=== PATIENT | female | born 1930 | race Caucasian/White ===

== ENCOUNTER 2018-12-06 14:27 | Inpatient (IN) | payer MEDICARE ==
[~2018-12-06] VITALS: Ht 162.6 cm; Wt 59.4 kg
--- NOTE | 2018-12-06 14:49 | NUR ---
received patient awake alert via wheelchair,[facility] production line solderer dr. miguel larose paged for admission orders.
--- NOTE | 2018-12-06 15:00 | NUR ---
spoke with miguel he will see patient first on the floor.
--- NOTE | 2018-12-06 15:00 | NUR ---
MS rn notes received pt in room 102. blood pressure 171/64 pulse 55. pt with sling on left arm. left arm with bruises and swelling. c/o pain 10/10 in left arm. admitting process complete.
[2018-12-06] MEDS ORDERED: LEVO137T24 PO (15:05)
[2018-12-06] MEDS ORDERED: ASCO-317 PO (15:05)
[2018-12-06] MEDS ORDERED: ATOR20TA PO (15:05)
[2018-12-06] MEDS ORDERED: CHOL20004 PO (15:05)
[2018-12-06] MEDS ORDERED: B CO1TAB6 PO (15:05)
[2018-12-06] MEDS ORDERED: BUDE180A IH (15:05)
[2018-12-06] MEDS ORDERED: RIVA10TA PO (15:05)
[2018-12-06] MEDS ORDERED: MAGN400T6 PO (15:05)
[2018-12-06] MEDS ORDERED: MULT-1160 PO (15:05)
[2018-12-06] MEDS ORDERED: LOSA1TAB36 PO (15:05)
[2018-12-06 16:00] VITALS: BP 171/64
[2018-12-06] MEDS ORDERED: HYDROCODONE/APAP 5/325MG 1 EACH TABLET PO ONE (16:30)
--- NOTE | 2018-12-06 17:52 | NUR ---
still waiting for admission ayanna from [facility], pressurised container filler page regarding schedule procedure in am.
--- NOTE | 2018-12-06 17:53 | NUR ---
able to get orders from coury nieves and carried out.
[2018-12-06] MEDS ORDERED: ONDANSETRON HCL/PF 4 MG/2 ML VIAL IVP PRN (18:00)
[2018-12-06] MEDS ORDERED: MAGNESIUM HYDROXIDE 30 ML UDC PO PRN (18:00)
[2018-12-06] MEDS ORDERED: MORPHINE SULFATE INJ 2 MG/ML DISP.SYRIN IV PRN (18:00)
[2018-12-06] MEDS ORDERED: Z GUARD REMEDY 2 OZ OINT TP PRN (18:00)
[2018-12-06] MEDS ORDERED: MAG HYDROX/AL HYDROX/SIMETH 30 ML UDC PO PRN (18:00)
[2018-12-06] MEDS ORDERED: ACETAMINOPHEN 325 MG TABLET PO PRN (18:00)
[2018-12-06] MEDS: IV NS 0.9% 1,000 ML IV PRN (18:28)
--- NOTE | 2018-12-06 18:50 | NUR ---
ms rn notes pt stable in bed, grand daughter at bedside. iv fluids infusing via rfa at 75ml/hr. not in resp distress. bed in locked/lowest position. call light in reach. endorsed to pm nurse for del.
[2018-12-06 20:00] VITALS: BP_SYST 169; BP_DIAS 64; BP_DIAS 84
--- NOTE | 2018-12-06 20:00 | NUR ---
MS RN NOTE PT IN BED AWAKE. A/O X 4, NO SOB, NO DISTRESS OR DISCOMFORT NOTED. STATES "IF I DON'T MOVE THERE IS NO PAIN". REMINDED HER IF SHE FEELS PAIN ASK FOR PAIN MED. PT STATES "OK". LT ARM WITH SLING ON. LT ARM WITH SWELLING AND PURPLISH DISCOLORATION NOTED. IVF NS 75 ML/HR INFUSING WELL NO S/S OF INFILTRATION NOTED. ALSO REMINDED PT SHE WILL BE NOTHING BY MOUTH AFTER MIDNIGHT DUE TO SURGERY IN AM. SON ALSO AT BED SIDE. SIDE RAILS UP X 2 AND CALL LIGHT WITHIN REACH. CONTINUE TO MONITOR HER.
[2018-12-06] MEDS: BUDESONIDE RESPULE INH 0.5 MG/2 ML AMPUL.NEB IH SCH (22:51)
[2018-12-06 23:44] LABS: APPEARANCE,URINE Clear (CLEAR); BILIRUBIN,URINE Negative (NEGATIVE); BLOOD, URINE Trace-intact Ery/uL (NEGATIVE); COLOR,URINE Yellow (YELLOW); KETONES,URINE Negative (NEGATIVE); LEUKOCYTE ESTERASE ,URINE Negative (NEGATIVE); NITRITE, URINE Negative (NEGATIVE); PH,URINE 5.5 (5.0-8.0); PROTEIN,URINE Negative (NEGATIVE); UGLUCOSE Negative (NEGATIVE); UROBILINOGEN,URINE 0.2 EU/dL (0.2)
[2018-12-07] MEDS: HYDROCODONE/APAP 5/325MG 1 EACH TABLET PO PRN ×2 (00:17→19:46)
[2018-12-07 00:44] LABS: BACTERIA,URINE Few /HPF (None Seen); SQUAMOUS EPITHELIAL CELL,UR Few /HPF (None Seen); WBC,URINE 0-2 /HPF (0-3)
[2018-12-07 05:00] VITALS: BP 162/80
[2018-12-07 06:22] LABS: BASOPHILS % (AUTO) 0.5 % (0.0-2.0); EOSINOPHILS % (AUTO) 3.9 % (0.0-6.0); HEMATOCRIT 32 % (33-45); HEMOGLOBIN 10.7 g/dL (11.5-14.8); LYMPHOCYTES # (AUTO) 2.4 /CMM (0.8-4.8); MEAN CORPUSCULAR HGB CONC 34 g/dl (31.0-36.0); MEAN CORPUSCULAR VOLUME 91 fL (82-100); MONOCYTES # (AUTO) 0.6 /CMM (0.1-1.30); MONOCYTES % (AUTO) 10.4 % (2.0-12.0); NEUTROPHILS # (AUTO) 2.4 /CMM (1.8-8.9); NEUTROPHILS % (AUTO) 42.2 % (43.0-81.0); PLATELET COUNT (AUTO) 190 /CMM (150-450); RED BLOOD CELL COUNT(AUTO) 3.48 MIL/uL (4.0-5.2); WHITE BLOOD COUNT (AUTO) 5.7 K/uL (4.3-11.0)
[2018-12-07 06:53] LABS: ALBUMIN 2.7 g/dL (3.4-5.0); BILIRUBIN,TOTAL 0.7 mg/dL (0.2-1.0); CALCIUM, SERUM 8.8 mg/dL (8.5-10.1); CREATININE 0.8 mg/dL (0.6-1.3); MAGNESIUM 1.8 mg/dL (1.8-2.4); PHOSPHORUS 3.3 mg/dL (2.5-4.9); POTASSIUM 4.2 mmol/L (3.5-5.1); TOTAL PROTEIN, SERUM 6.4 g/dL (6.4-8.2)
--- NOTE | 2018-12-07 07:00 | NUR ---
RN MS NOTE RECEIVED REPORT AT BEDSIDE. PT A/OX4. NPO, PLANNED FOR LEFT HUMORAL SURGERY. RFA IV SITE WAS LEAKING, REMOVED AND PLACED A NEW IV RIGHT HAND #22 INSERTED, PATENT AND FLUSHED WELL. NO SIGN OF RESPIRATORY DISTRESS OR SOB AT THIS TIME. WILL CONT' TO MONITOR.
--- NOTE | 2018-12-07 07:20 | NUR ---
MS RN NOTE CALLED PATIENT'S SON AND LEFT VOICE MESSAGE THAT SURGERY WILL BE IN 1 HOUR.
[2018-12-07] MEDS: PANTOPRAZOLE 40 MG TABLET.DR PO SCH (07:30)
[2018-12-07] MEDS ORDERED: BUPIVACAINE 0.5 % PF 150 MG/30 ML VIAL ONE ×2 (07:38→08:21)
[2018-12-07] MEDS ORDERED: ANESTHESIA TRAY IN PYXIS 1 EA TRAY MC ONE (07:38)
[2018-12-07] MEDS ORDERED: BACITRACIN 50000 UNITS/VIAL ONE (07:39)
[2018-12-07 07:50] LABS: THYROID STIMULATING HORMONE 1.482 uIU/mL (0.358-3.74)
[2018-12-07 08:00] VITALS: BP 184/89
--- NOTE | 2018-12-07 08:15 | NUR ---
MS RN NOTE PATIENT'S SON AT BEDSIDE.
[2018-12-07] MEDS ORDERED: MIDAZOLAM HCL 2 MG/2ML VIAL ONE (08:18)
[2018-12-07] MEDS ORDERED: FENTANYL PF 250MCG/5ML AMPUL ONE ×2 (08:18→08:19)
[2018-12-07] MEDS ORDERED: MEPERIDINE HCL/PF 100 MG/ML DISP.SYRIN ONE (08:19)
[2018-12-07] MEDS ORDERED: ROCURONIUM BROMIDE 50 MG/5 ML ONE (08:20)
[2018-12-07] MEDS ORDERED: FAMOTIDINE/PF INJ 20 MG/2 ML VIAL IV ONE (08:20)
[2018-12-07] MEDS: BUDESONIDE RESPULE INH 0.5 MG/2 ML AMPUL.NEB IH SCH ×2 (09:00→21:54)
[2018-12-07] MEDS ORDERED: CLINDAMYCIN 900 MG/6 ML VIAL ONE (10:48)
[2018-12-07] MEDS ORDERED: hydrALAZINE HCL IV 20 MG VIAL ONE (12:21)
--- NOTE | 2018-12-07 13:00 | NUR ---
RN MS NOTE PT VACK FOR SURGERY. A/OX3. VS STABLE. SAFETY MEASURES IN PLACE.
[2018-12-07] MEDS: IV NS 0.9% 1,000 ML IV PRN (13:48)
[2018-12-07 16:00] VITALS: BP 144/67
--- NOTE | 2018-12-07 19:59 | NUR ---
MS RN NOTE PT RESTING COMFORTABLY. NO SIGN OF ACUTE RESPIRATORY DISTRESS OR SOB AT THIS TIME. FAMILY MEMBER AT BEDSIDE. SAFETY MEASURES IN PLACE. BED LOCKED AND LOW, SIDE RAILS UPX3, BED ALARM ON. ENDORSWED TO PM NURSE FOR LORI.
--- NOTE | 2018-12-07 20:00 | NUR ---
RN MS INITIAL NOTE RECEIVED REPORT AT BEDSIDE. PT A/OX4, PREFERS TO BE ON R/A AT THIS TIME, TOLERATING WELL. S/P LEFT HUMORAL SURGERY, SLING IN PLACE, MEDICATED WITH NORCO 5/325 MG REQUESTED BY SON. IV RIGHT HAND #22 INTACT, PATENT AND FLUSHED WELL. NO SIGN OF RESPIRATORY DISTRESS OR SOB AT THIS TIME. WILL CONT' TO MONITOR.
[2018-12-07] MEDS: ATORVASTATIN 10 MG TABLET PO SCH (22:24)
[2018-12-08] VITALS: BP 123/50
[2018-12-08] MEDS: HYDROCODONE/APAP 5/325MG 1 EACH TABLET PO PRN (00:58)
[2018-12-08] MEDS: IV NS 0.9% 1,000 ML IV PRN (04:00)
--- NOTE | 2018-12-08 06:15 | NUR ---
RN MS CLOSING NOTE PT A/OX4, PREFERS TO BE ON R/A AT THIS TIME, TOLERATING WELL. S/P LEFT HUMORAL SURGERY, SLING IN PLACE, PAIN MGMT QS REQUESTED BY PT PRN, VS STABLE, AFEBRILE. IV RIGHT HAND #22 INTACT, PATENT AND FLUSHED WELL. NO SIGN OF RESPIRATORY DISTRESS OR SOB AT THIS TIME. WILL CONT' TO MONITOR.
--- NOTE | 2018-12-08 07:05 | NUR ---
MS RN OPENING RECEIVED PATIENT A/OX4, ON ROOM AIR, NO RESPIRATORY DISTRESS NOTED. PATIENT ABLE TO WIGGLE FINGERS, FEEL TOUCH, CAP REFILL <3SEC ON LEFT HAND. RH 22G C/D/I, PATENT, FLUIDS ON HOLD PER PATIENT REQUEST. REPORTS NO PAIN AT THIS TIME. CALL LIGHT WITHIN REACH, WILL CONT TO MONITOR
[2018-12-08 08:00] VITALS: BP 135/53
[2018-12-08] MEDS: BUDESONIDE RESPULE INH 0.5 MG/2 ML AMPUL.NEB IH SCH ×2 (08:15→19:51)
[2018-12-08] MEDS: PANTOPRAZOLE 40 MG TABLET.DR PO SCH (08:29)
[2018-12-08] MEDS: HYDROCODONE/APAP 10/325MG 1 EA TABLET PO PRN ×2 (12:18→19:29)
[2018-12-08 16:00] VITALS: BP 130/79
--- NOTE | 2018-12-08 18:46 | NUR ---
MS RN CLOSING NO SIGNIFICANT CHANGES THROUGHOUT SHIFT. PATIENT AMBULATED AROUND YOUNG, VOIDED, ATE WELL. MEDICATED X1 WITH PO MEDS ORDERED. LUE KEPT IN SLING AT ALL TIMES, PATIENT AWARE OF NO WEIGHT BEARING. FAMILY AT BEDSIDE. A/OX4, NO RESPIRATORY DISTRESS. WILL ENDORSE TO LORI
--- NOTE | 2018-12-08 20:10 | NUR ---
RN MS INITIAL NOTE RECEIVED PATIENT A/OX4, ON ROOM AIR, NO RESPIRATORY DISTRESS NOTED. PATIENT ABLE TO WIGGLE FINGERS, FEEL TOUCH, CAP REFILL <3SEC ON LEFT HAND. RH 22G C/D/I, PATENT, FLUIDS ON HOLD PER PATIENT REQUEST D/T TO IV LEAKING, REFUSES NEW LINE. REPORTS NO PAIN AT THIS TIME. CALL LIGHT WITHIN REACH, WILL CONT TO MONITOR
[2018-12-08] MEDS: ATORVASTATIN 10 MG TABLET PO SCH (21:48)
[2018-12-09] VITALS: BP 125/79
--- NOTE | 2018-12-09 06:11 | NUR ---
RN MS CLOSING NOTE PATIENT A/OX4, ON ROOM AIR, NO RESPIRATORY DISTRESS NOTED. PATIENT ABLE TO WIGGLE FINGERS, FEEL TOUCH, CAP REFILL <3SEC ON LEFT HAND. RH 22G C/D/I, PATENT, FLUIDS ON HOLD PER PATIENT REQUEST D/T TO IV LEAKING, REFUSES NEW LINE, WILL ENDORSE TO AM SHIFT TO TRY. REPORTS NO PAIN AT THIS TIME. CALL LIGHT WITHIN REACH, WILL CONT TO MONITOR
--- NOTE | 2018-12-09 07:30 | NUR ---
RN OPENING NOTE RECEIVED REPORT AT BEDSIDE, PATIENT IN BED. AWAKE AND ALERTX4. ON ROOM AIR. COMPLAINING OF PAIN ON HER LEFT HUMERUS FRACTURE S/P FALL. HAS RIGHT HAND #22. REQUESTING TO REMOVE THE LINE AND DOES NOT WANT A NEW ONE. HAS AN ORDER OF NS AT 75 ML/HR. PATIENT AWARE TO DRINK MORE FLUIDS. DC PLANNING TO SNF. BED LOCKED AND IN LOWEST POSITION. CALL LIGHT WITHIN REACH. WILL CONTINUE TO MONITOR
[2018-12-09] MEDS: PANTOPRAZOLE 40 MG TABLET.DR PO SCH (07:32)
[2018-12-09] MEDS: HYDROCODONE/APAP 10/325MG 1 EA TABLET PO PRN ×3 (07:32→21:12)
[2018-12-09 08:00] VITALS: BP 146/65
[2018-12-09] MEDS: BUDESONIDE RESPULE INH 0.5 MG/2 ML AMPUL.NEB IH SCH ×2 (08:19→20:33)
--- NOTE | 2018-12-09 09:00 | NUR ---
RN NOTE PATIENT EDUCATED ABOUT THE IV SITE BEING USED FOR EMERGENCY PURPOSES. AGREED TO KEEP IV FOR NOW BUT REFUSING IVF. PER PATIENT, WILL DRINK FLUIDS. PATIENT COMPLAINING OF CONSTIPATION. OFFERED PRUNE JUICE AND WILL CONTINUE TO MONITOR. AWARE THAT SHE ALSO HAVE MOM PRN
--- NOTE | 2018-12-09 10:00 | NUR ---
RN NOTE JOHNNY, PAC AT BEDSIDE. CHANGED DRESSING, OK TO DC PATIENT PER JOHNNY.
[2018-12-09] MEDS ORDERED: Hydrocodone/Apap 10/325MG PO (11:11)
[2018-12-09 12:00] VITALS: BP 117/56
--- NOTE | 2018-12-09 13:30 | NUR ---
RN NOTE DAUGHTER IN LAW AT BEDSIDE, PER DAUGHTER IN LAW THEY ARE REQUESTING ANOTHER DAY TO STAY IN THE HOSPITAL. DR MACHADO WILL BE TALKING TO DR HOLGUIN REGARDING DISCHARGE. OCEANOLOGY TEACHER AWARE. DR HOLGUIN CALLED AND OK'D TO STAY FOR ANOTHER NIGHT. PATIENT IS GOING TO [facility] TOMORROW
[2018-12-09 16:00] VITALS: BP 115/60
--- NOTE | 2018-12-09 18:24 | NUR ---
RN NOTE DR ALMAGUER (PATIENT'S SON) AT BEDSIDE. WANTED TO MAKE SURE THE PATIENT WILL BE BACK TO [facility] POST OP. REQUEST RELAYED TO DR HOLGUIN
--- NOTE | 2018-12-09 18:55 | NUR ---
RN CLOSING NOTE PATIENT IN CHAIR, JUST FINISHED DINNER. AWAKE AND ALERT. NO COMPLAINS OF ANY PAIN NOR SOB AT THIS TIME. ALL MEDS GIVEN. HAD 1X BM - SMALL PER PATIENT. WAS GIVEN PRUNE JUICE X2 FOR CONSTIPATION DUE TO NORCO 10. ALL NEEDS MET. DC TOMORROW GOING TO [facility]. FAMILY AT BEDSIDE, AWARE OF DC. XARELTO ORDERED FOR TONIGHT PER DR HOLGUIN. BED LOCKED AND IN LOWEST POSITION. CALL LIGHT WITHIN REACH. WILL ENDORSE TO NOC SHIFT FOR LORI
--- NOTE | 2018-12-09 19:38 | NUR ---
RN MS INITIAL NOTE RECEIVED PATIENT A/OX4, ON ROOM AIR, NO RESPIRATORY DISTRESS NOTED. S/P LT HUMERUS ORIF PATIENT ABLE TO WIGGLE FINGERS, FEEL TOUCH, CAP REFILL <3SEC ON LEFT HAND. RH 22G C/D/I, PATENT, FLUIDS ON HOLD PER PATIENT REQUEST D/T TO IV LEAKING, REFUSES NEW LINE. REPORTS NO PAIN AT THIS TIME. CALL LIGHT WITHIN REACH, WILL CONT TO MONITOR
[2018-12-09 20:00] VITALS: BP 137/60
[2018-12-09] MEDS: RIVAROXABAN 10 MG TABLET PO SCH (21:11)
[2018-12-09] MEDS: ATORVASTATIN 10 MG TABLET PO SCH (21:12)
[2018-12-10] VITALS: BP 137/60
[2018-12-10 04:00] VITALS: BP 168/61
--- NOTE | 2018-12-10 06:09 | NUR ---
RN MS CLOSING NOTE PATIENT A/OX4, ON ROOM AIR, NO RESPIRATORY DISTRESS NOTED. S/P LT HUMERUS ORIF PATIENT ABLE TO WIGGLE FINGERS, FEEL TOUCH, CAP REFILL <3SEC ON LEFT HAND. RH 22G C/D/I, PATENT, FLUIDS ON HOLD PER PATIENT REQUEST D/T TO IV LEAKING, REFUSES NEW LINE. REPORTS NO PAIN AT THIS TIME. CALL LIGHT WITHIN REACH, WILL CONT TO MONITOR
--- NOTE | 2018-12-10 07:00 | NUR ---
RN OPENING NOTE PATIENT SITTING ON THE CHAIR, AWAKE AND ALERT. WAS COMPLAINING OF LEFT HUMERUS PAIN D/T FRACTURE. NORCO ADMINISTERED AT 0720 FOR PAIN. 0730 - REPORT GIVEN TO ESTEVAN GRADY FOR LORI
[2018-12-10] MEDS: HYDROCODONE/APAP 10/325MG 1 EA TABLET PO PRN ×2 (07:15→18:32)
[2018-12-10] MEDS: PANTOPRAZOLE 40 MG TABLET.DR PO SCH (07:17)
--- NOTE | 2018-12-10 07:45 | NUR ---
RN NOTE: RECEIVED BEDSIDE REPORT FROM KANWAL MCLEAN RN FOR CONTINUITY OF CARE. PATIENT WAS AWAKE, ALERT AND VERBALLY RESPONSIVE. RESPIRATION EVEN AND UNLABORED SATURATING 95% IN ROOM AIR. PER VINAY RN SHE ALREADY ADMINISTERED A NORCO 10-325MG PO PER MD ORDER TO THE PATIENT DUE TO HER PAIN ON THE (L) ARM S/P ORIF OF THE (L) HUMERUS DUE TO FALL. AFEBRILE. SKIN WARM TO TOUCH. (R) HAND IV SITE NOTED PATENT AND INTACT. PATIENT REFUSED TO RECEIVE IV FLUID BECAUSE SHE HAS BEEN TAKING ENOUGH ORAL FLUID. BED ALARMED AND LOCKED AT ALL TIMES. BED ON LOWEST POSITION. CALL LIGHT WITHIN REACH. NEEDS ANTICIPATED.
[2018-12-10 08:00] VITALS: BP 155/49
[2018-12-10] MEDS: BUDESONIDE RESPULE INH 0.5 MG/2 ML AMPUL.NEB IH SCH ×2 (08:24→21:29)
--- NOTE | 2018-12-10 11:57 | NUR ---
RN NOTE: DR. HOLGUIN PRESENT IN THE UNIT AND ASKED TO CALL THE PATIENT'S DAUGHTER IN LAW TO CLARIFY REGARDING THE PATIENT'S DISCHARGE TODAY AND ACCORDING TO HIM, THE PATIENT'S DISCHARGE FOR TODAY WILL BE HOLD UNTIL TOMORROW. FANCY PACKER DENNIS AND CHARGE NURSE ELISA MADE AWARE.
[2018-12-10 16:00] VITALS: BP 147/55
[2018-12-10] MEDS: RIVAROXABAN 10 MG TABLET PO SCH (17:02)
--- NOTE | 2018-12-10 17:57 | NUR ---
RN NOTE: DR. HOLGUIN MADE AWARE OF THE PATIENT'S REQUEST TO GET AN ORDER FOR A SUPPOSITORY TO HELP HER MOVE THE BOWEL BY TONIGHT. DR. HOLGUIN GAVE AN ORDER FOR DULCOLAX 10MG SUPPOSITORY BID PRN. AND PATIENT WAS INFORMED AND BERNADETTE DAUGHTER IN LAW.
--- NOTE | 2018-12-10 17:59 | NUR ---
RN NOTE: CRUSHER SETTER LAVERN WAS INFORMED ABOUT BERNADETTE, DAUGHTER IN LAW'S REQUEST TO TRANSFER THE PATIENT BY TOMORROW AT [facility]OUND [phone] [facility].
[2018-12-10] MEDS ORDERED: BISACODYL SUPP (10 MG) 10 MG/SUPP.RECT SUPP.RECT RC PRN (18:00)
--- NOTE | 2018-12-10 19:00 | NUR ---
RECIEVED ALERT AND ORIENTATED TALKATIVE, ABOUT HER FALL AND SURGERY. AWARE SHE IS LEAVING TOMORROW STATED SHE HAD A GOOD BM REFUSING IV FLUIDS STATED SHE DRINKS ENOUGH DTR AT THE BEDSIDE
[2018-12-10 19:47] VITALS: BP 162/62
--- NOTE | 2018-12-10 19:51 | NUR ---
RN NOTE: BEDSIDE REPORT WAS GIVEN TO PM SHIFT NURSE FOR CONTINUITY OF CARE. PATIENT HAD A BOWEL MOVEMENT X1 TONIGHT. ENDORSED TO PM SHIFT NURSE TO RELAY THE MESSAGE THAT THE PATIENT'S DAUGHTER IN LAW BERNADETTE WOULD LIKE A PICK-UP TIME ARRANGED AT AROUND [phone] BY TOMORROW TO [facility].
[2018-12-10 20:00] VITALS: BP 162/62
[2018-12-10] MEDS: ATORVASTATIN 10 MG TABLET PO SCH (21:30)
[2018-12-11] MEDS: HYDROCODONE/APAP 5/325MG 1 EACH TABLET PO PRN (02:09)
[2018-12-11 05:05] VITALS: BP 147/66
--- NOTE | 2018-12-11 05:20 | NUR ---
RN NOTES: SLEPT THRU THE N IGHT. TIMES 2 ASSISTED TO THE BATHROOM TO VOID. GOOD BM 12/10. REFUSING THE IV FLUIDS, DRINKING WELL. AWARE SHE IS GOING HOME TODAY. LEFT ARM AND HAND ELEVATED ON A PILLOW TO DECREASE THE SWELLING WEARING A SLING. ARM DRESSING CDI. LAST MEDICATED FOR PAIN 0 AND EFFECTIVE.
--- NOTE | 2018-12-11 07:19 | NUR ---
MS RN OPENING NOTE RECEIVED REPORT FROM [facility] SHIFT NURSE. PT AWAKE, SITTING IN CHAIR BY THE BED, ALERT AND ORIENTED X 4, ON ROOM AIR, SATURATING WELL, NO SIGNS OF RESPIRATORY DISTRESS NOTED. INTRODUCED SELF TO PT AND DISCUSSED PLAN OF CARE. IV SITE ON RIGHT AC G18 PATENT, INTACT WITH SALINE LOCK. BED IN LOW POSITION, LOCKED, CALL LIGHT WITHIN REACH. Addendum: 12/11/18 at 0734 by JULISSA WICK RN IV SITE ON RIGHT HAND, NOT RIGHT AC
[2018-12-11] MEDS: PANTOPRAZOLE 40 MG TABLET.DR PO SCH (07:31)
[2018-12-11 08:00] VITALS: BP 156/82
[2018-12-11] MEDS: HYDROCODONE/APAP 10/325MG 1 EA TABLET PO PRN (08:27)
[2018-12-11] MEDS: BUDESONIDE RESPULE INH 0.5 MG/2 ML AMPUL.NEB IH SCH (09:13)
--- NOTE | 2018-12-11 10:40 | NUR ---
REMOVED IV FROM RIGHT HAND, DRESSING APPLIED. ALL DISCHARGE PAPERWORK SIGNED, ALL BELONGINGS AND VALUABLES ACCOUNTED FOR AND FORM SIGNED. CALL GRETA AT [facility] AND GAVE TELEPHONE REPORT.
--- NOTE | 2018-12-11 11:01 | NUR ---
PT WEARING ARM SLING ON LEFT ARM- UNABLE TO TAKE PHOTO DUE TO PAIN AND INABILITY TO REMOVE ARM FROM SLING.
--- NOTE | 2018-12-11 11:05 | NUR ---
GAVE REPORT TO ALFREDO FROM [facility]
--- NOTE | 2018-12-11 11:28 | NUR ---
PT LEFT UNIT VIA GURNEY IN STABLE CONDITION
== END 2018-12-11 11:28 | DRG 494 ==
LOC: MEDSG1 14:27 → EDSTATUS 12-07 16:25
PROVIDERS: ADMIT Hospitalist; ATTEND Nurse Practitioner Acute Care
PROC: 0PSG06Z Reposition Left Humeral Shaft with Intramedullary Internal Fixation Device, Open Approach (ICD-10-PCS; principal; 2018-12-07)
DX: S42.202A Unspecified fracture of upper end of left humerus, initial encounter for closed fracture (principal); Z86.73 Personal history of transient ischemic attack (TIA), and cerebral infarction without residual deficits; E78.5 Hyperlipidemia, unspecified; E03.9 Hypothyroidism, unspecified; I10 Essential (primary) hypertension; J45.909 Unspecified asthma, uncomplicated; I48.91 Unspecified atrial fibrillation; W19.XXXA Unspecified fall, initial encounter; Y93.9 Activity, unspecified; Y92.89 Other specified places as the place of occurrence of the external cause; Z79.01 Long term (current) use of anticoagulants
CPT/HCPCS: 36415; 71045-TC; 73020; 80053-TC; 80061-TC; 81000-TC; 83735-TC; 84100-TC; 84443-TC; 85025-TC; 85730-TC; 86850-TC; 87081-TC; 94799-TC; 97116-TC; 97530-TC; A6253; G0378; J0360; J2175; J2250; J2270; J2405; J2704; J2710; J2765; J3010; J3490; J7030

== ENCOUNTER 2019-04-17 10:36 | Day surgery (SDC) | payer MEDICARE, MEDICAID ==
[~2019-04-17 10:36] MED LIST: ASCO-317 PO; ATOR20TA PO; B CO1TAB6 PO; BUDE180A IH; CHOL20004 PO; Hydrocodone/Apap 10/325MG PO; LEVO137T24 PO; LOSA1TAB36 PO; MAGN400T8 PO; MULT-1160 PO; RIVA10TA PO
[2019-04-17] MEDS ORDERED: LIDOCAINE HCL/PF 1% 30 ML SDV ONE (12:49)
[2019-04-17] MEDS ORDERED: BUPIVACAINE 0.5 % PF 150 MG/30 ML VIAL ONE (12:49)
[2019-04-17] MEDS ORDERED: ANESTHESIA TRAY IN PYXIS 1 EA TRAY MC ONE (12:52)
[2019-04-17] MEDS ORDERED: CLINDAMYCIN 900 MG/6 ML VIAL ONE (13:07)
[2019-04-17] MEDS ORDERED: BETA ACET/BET NA PHOS MDV 6 MG/ML VIAL ONE (13:34)
[2019-04-17] MEDS ORDERED: HYDROCODONE/APAP 5/325MG 1 EACH TABLET ONE (14:53)
== END 2019-04-17 15:30 | disposition home or self-care (01) ==
LOC: DS 10:36
PROVIDERS: ATTEND Student in an Organized Health Care Education/Training Program
DX: T84.84XA Pain due to internal orthopedic prosthetic devices, implants and grafts, initial encounter (principal); M75.02 Adhesive capsulitis of left shoulder; J45.909 Unspecified asthma, uncomplicated; I10 Essential (primary) hypertension; I48.91 Unspecified atrial fibrillation; E03.9 Hypothyroidism, unspecified; Z88.1 Allergy status to other antibiotic agents; Z88.2 Allergy status to sulfonamides; Y79.3 Surgical instruments, materials and orthopedic devices (including sutures) associated with adverse incidents; Z79.899 Other long term (current) drug therapy
CPT/HCPCS: 73030-TC; A4565; J0702; J3490